=== PATIENT | male | born 1950 | race Caucasian/White ===

== ENCOUNTER 2016-08-12 07:14 | Day surgery (SDC) | payer MEDICARE, OTHER ==
[2016-08-08 11:55] LABS: BASOPHILS 0.6 %; BASOPHILS ABSOLUTE 0.04 10/3/uL (0.0-0.16); EOSINOPHILS 3.7 %; EOSINOPHILS ABSOLUTE 0.26 10/3/uL (0.0-0.53); HEMATOCRIT 41.6 % (40.0-51.0); HEMOGLOBIN 14.3 g/dL (13.6-17.8); IMMATURE GRANULOCYTES 0.3 %; IMMATURE GRANULOCYTES ABSOLUTE 0.02 10/3/uL (0.0-0.11); LYMPHOCYTES 25.1 %; LYMPHOCYTES ABSOLUTE 1.74 10/3/uL (0.67-4.30); MEAN CORPUS HGB CONC 34.4 g/dL (32.0-36.0); MEAN CORPUSCULAR HEMOGLOB 34.2 pg (26.0-34.0); MEAN CORPUSCULAR VOLUME 99.5 fL (80-100); MEAN PLATELET VOLUME 9.2 fL (9.2-13.0); MONOCYTES 8.8 %; MONOCYTES ABSOLUTE 0.61 10/3/uL (0.21-1.20); NEUTROPHILS 61.5 %; NEUTROPHILS ABSOLUTE 4.27 10/3/uL (2.02-8.40); PLATELET COUNT 239 10/3/uL (150-400); RED CELL COUNT 4.18 10/6/uL (4.7-6.1); WHITE BLOOD CELLS 6.9 10/3/uL (4.5-10.5)
[2016-08-08 11:57] LABS: MANUAL DIFF NO %
[2016-08-08 12:12] LABS: CALCIUM, SERUM 9.2 MG/DL (8.5-10.4); CHLORIDE, SERUM 104 MMOL/L (96-112); CO2 (CARBON DIOXIDE) 26 MMOL/L (24-34); CREATININE 1.24 MG/DL (0.70-1.30); GFR AFRICAN AMERICAN 70 ML/MIN (>=60); GFR NON AFRICAN AMERICAN 60 ML/MIN (>=60); POTASSIUM, SERUM 4.4 MMOL/L (3.5-5.3); SODIUM, SERUM 142 MMOL/L (135-148)
[2016-08-08 12:13] LABS: BUN (BLOOD UREA NITROGEN) 15 MG/DL (6-23); GLUCOSE, SERUM 144 MG/DL (60-99); PLATELET ESTIMATE ADQ (ADEQUATE)
[2016-08-08 12:14] LABS: RBC MORPHOLOGY NORM (NORMAL)
[2016-08-08 12:22] LABS: INTERNATIONAL NORMAL RATI 1.1 UNITS (-); PARTIAL THROMBO TIME 30.4 SEC (22.5-37.2); PROTIME (NOT ORD) 13.7 SEC (12.0-14.5)
--- NOTE | ~2016-08-12 | OP ---
Record Of Operation [facility] [address] [place]. [address] NAME: GRAY CHARLTON : 50 [place] [facility] [place] [id number] AGE: 66 ADM/REG DATE : 08/12/16 MR#: [id number] REPORT SERV DATE: 08/12/16 DICTATED BY: UDSTY OLMOS DATE: 08/12/16 REPORT STATUS : Draft TRANSCRIBED BY: MODL DATE: 08/12/16 DATE OF PROCEDURE: 08/12/2016 PREOPERATIVE DIAGNOSIS: Right ureteral stone. Right renal stones. POSTOPERATIVE DIAGNOSIS: Right ureteral stone. Right renal stones. PROCEDURE PERFORMED: Cystoscopy, right retrograde pyelogram, right flexible ureterorenoscopy with laser fragmentation of multiple stones and removal of multiple stones and right ureteral stent placement. SURGEON: Dusty lOmos M.D. ANESTHESIA: General. ESTIMATED BLOOD LOSS: 5 mL. INDICATIONS: This is a 66-year-old white male with recurrent stone disease who had about a 7 mm stone in the right proximal ureter as well as multiple intrarenal calculi on the right. We are planning endoscopic management. Risks of infection, bleeding, failure, need for further surgery have been discussed. PROCEDURE IN DETAIL: The patient was taken to the operating room and underwent a general anesthetic. He was placed in the lithotomy position on the table, and his external genitalia were sterilely prepped and draped. The 22-Armenian cystoscope sheath with 30-degree lens was inserted under direct vision per urethra with the aid of the video monitor. The anterior urethra was normal. The prostatic urethra showed evidence of prior TURP and was wide open. The bladder was inspected and the mucosa was normal throughout. Single orifices were seen bilaterally. There were no mass lesions or stones within the bladder. A right retrograde pyelogram was obtained showing a normal caliber ureter with a faint filling defect in the right upper ureter. The right collecting system looked normal to minimally dilated. An 0.038 guidewire was easily passed up into the kidney and an 11/13-Armenian ureteral access sheath was advanced up into the mid ureter over the guidewire. A second guidewire was placed through the access sheath and the sheath and obturator were replaced over one of the two guidewires leaving the other in place as a safety wire. The flexible ureteroscope was then advanced up into the mid ureter and on up toward the proximal ureter where just below the UPJ a large impacted stone was noted. The 200 micron laser fiber was used to partially fragment the stone into many pieces in the ureter and the remainder of the stone was manipulated back up into the collecting system of the kidney. The remainder of the stone was fragmented into small pieces using a 200 micron laser fiber. The renal collecting system was then systematically inspected. There were multiple stones noted, some of which were mobile and some of which were adherent to the calyceal sam. The laser fiber was judiciously used to loosen and to detach any adherent stones and was also used to fragment any larger stones that were encountered. At the conclusion of the procedure, any significant stones that were present were deemed to have been fragmented successfully down into small pieces. Several of the small pieces were grasped using an N-Felix basket and Record Of Operation [facility] [address] [place]. [address] NAME: GRAY CHARLTON : 50 [place]US : [place] [facility] [place] [id number] AGE: 66 ADM/REG DATE : 08/12/16 MR#: [id number] REPORT SERV DATE: 08/12/16 DICTATED BY: DUSTY OLMOS DATE: 08/12/16 REPORT STATUS : Draft TRANSCRIBED BY: MODJada DATE: 08/12/16 removed, to be sent for analysis. The scope was then withdrawn down through the ureter with no significant findings noted other than evidence of ureteral edema at the site of the impacted stone. The ureteroscope was then withdrawn from the bladder after inspection of the entire ureter and the cystoscope was reinserted over the previously placed guidewire, a 6-Armenian x 26 cm Contour stent was advanced over the guidewire such that the proximal end of the stent was observed to coil in the renal pelvis fluoroscopically and the distal end of the stent was visually observed to coil in the bladder following removal of the guidewire. The bladder was drained. All endoscopic apparatus was removed and the patient was taken to recovery in stable condition. GATO/RAYMOND Dusty Olmos M.D. / [id number] CC: Kobi Reinoso M.D.
[~2016-08-12 07:14] MED LIST: ASA5GR PO; DIOVAN320 MG PO; FARXIGA10 PO; JANUMET XR 1001 EACH PO; MOBIC15 MG PO; PERCOCET; PRILOSEC40 MG PO; T PO; VITAMIN D400 UNI1 PO; Z300 PO; ZOCOR40 PO
[2016-08-18 09:44] LABS: STONE COMPOSITION TWO DNR (())
== END 2016-08-12 14:19 | disposition home or self-care (01) ==
LOC: SDC 07:14
PROVIDERS: Urology
PROC: 0T768DZ Dilation of Right Ureter with Intraluminal Device, Via Natural or Artificial Opening Endoscopic (ICD-10-PCS; 2016-08-12)
PROC: 0TF38ZZ Fragmentation in Right Kidney Pelvis, Via Natural or Artificial Opening Endoscopic (ICD-10-PCS; principal; 2016-08-12 08:45)
DX: N20.2 Calculus of kidney with calculus of ureter (principal); I10 Essential (primary) hypertension; G47.33 Obstructive sleep apnea (adult) (pediatric); Z99.89 Dependence on other enabling machines and devices; E11.9 Type 2 diabetes mellitus without complications; E66.9 Obesity, unspecified; Z68.41 Body mass index [BMI] 40.0-44.9, adult; K21.9 Gastro-esophageal reflux disease without esophagitis; Z87.442 Personal history of urinary calculi; Z79.82 Long term (current) use of aspirin; Z79.1 Long term (current) use of non-steroidal anti-inflammatories (NSAID); Z79.899 Other long term (current) drug therapy; Z98.890 Other specified postprocedural states
CPT/HCPCS: 71020; 74420; 80048; 82365; 82962; 85025; 85610; 85730; 93005; A9270-GY; C1758; C2617; J2250; J2370; J2405; J2710; J3010; Q9967